=== PATIENT | female | born 1995 | race Hispanic/Latino ===

== ENCOUNTER 2024-01-14 19:00 | Inpatient (IN) | payer OTHER ==
[2024-01-14 20:37] VITALS: BMI 36.3
[2024-01-14] MEDS ORDERED: Lidocaine 1% (PF) 30 ML VIAL SC PRN (20:54)
[2024-01-14] MEDS ORDERED: Diphenoxylate HCl/Atropine Tablet PO PRN (20:54)
[2024-01-14] MEDS ORDERED: Ondansetron PF 4 MG/2 ML Vial IVP PRN (20:54)
[2024-01-14] MEDS ORDERED: Promethazine HCl 25 MG/ML VIAL IM PRN (20:54)
[2024-01-14] MEDS ORDERED: Carboprost 250 MCG/ML AMP IM PRN (20:54)
[2024-01-14] MEDS ORDERED: Misoprostol 200 MCG TAB PR PRN (20:54)
[2024-01-14] MEDS ORDERED: Tranexamic Acid 1,000 MG/10 ML VIAL IVP PRN (20:54)
[2024-01-14] MEDS ORDERED: Methylergonovine 0.2 MG/ML VIAL IM PRN (20:54)
[2024-01-14] MEDS ORDERED: hydrALAZINE 20 MG/ML VIAL SLOW IVP PRN (20:54)
[2024-01-14] MEDS: Lactated Ringer's 1,000 ML IV SCH (21:00)
[2024-01-14] MEDS ORDERED: Oxytocin 30 units/NS 500 ML 500 ML IV SCH ×2 (21:00)
[2024-01-14 21:35] LABS: Hematocrit 34.2 % (34.9-44.5); Hemoglobin 12.1 g/dL (12.0-15.5); Mean Corpuscular HGB CONC 35.4 g/dL (32.0-36.0); Mean Corpuscular Hemoglobin 29.6 pg (27.0-33.0); Mean Corpuscular Volume 83.6 fL (81.6-98.3); Platelet Count 377 10x3/uL (150-450); RBC Distribution Width 13.8 % (11.5-14.5); Red Blood Cell (RBC) Count 4.09 10x6/uL (3.90-5.03); White Blood Cell (WBC) Count 12.9 10x3/uL (3.5-10.5)
[2024-01-14] MEDS: Acetaminophen 500 MG TAB PO PRN (21:41)
[2024-01-14] MEDS: Misoprostol 100 MCG TAB VAG SCH (22:30)
[2024-01-14 23:11] LABS: Syphilis Antibody Nonreactive (Nonreactive); Syphilis Antibody Index 0.09 S/CO (<1.00 Non-Reactive)
[2024-01-14 23:12] LABS: HBsAg Index 0.17 S/CO (0-0.99); Hep B Surf Ag - L&D Non-Reactive S/CO (NonReactive)
[2024-01-15] MEDS: Oxytocin 30 units/NS 500 ML 500 ML IV SCH (12:21)
[2024-01-16] MEDS: fentaNYL/Ropivacaine Epidural 100 ML ONE (00:38)
[2024-01-16] MEDS ORDERED: Ondansetron PF 4 MG/2 ML Vial IVP PRN (00:42)
[2024-01-16] MEDS ORDERED: Moisturizing Cream (Eucerin) 113 GM JAR TOP PRN (00:42)
[2024-01-16] MEDS ORDERED: diphenhydrAMINE 50 MG/ML VIAL IVP PRN (00:42)
[2024-01-16] MEDS ORDERED: ePHEDrine Sulfate 50 MG/10 ML VIAL SLOW IVP PRN (00:42)
[2024-01-16] MEDS ORDERED: Naloxone HCl 0.4 mg/ml Vial IVP PRN ×2 (00:42)
[2024-01-16] MEDS ORDERED: Lactated Ringer's 500 ML IV PRN (00:42)
[2024-01-16] MEDS ORDERED: Acetaminophen 325 MG TAB PO PRN (00:42)
[2024-01-16] MEDS ORDERED: Promethazine HCl 25 MG/ML VIAL IM PRN (00:42)
[2024-01-16] MEDS ORDERED: fentaNYL 2 mcg/Ropivacaine 0.2% Epidural 100 ML CADD EPIDURAL SCH (00:45)
[2024-01-16] MEDS ORDERED: Communication Order-Pharmacy FS SCH (00:45)
[2024-01-16] MEDS ORDERED: Bisacodyl 10 MG SUPP PR PRN (08:22)
[2024-01-16] MEDS ORDERED: hydrALAZINE 20 MG/ML VIAL SLOW IVP PRN (08:22)
[2024-01-16] MEDS ORDERED: Preparation H Ointment 28 GM TUBE PR PRN (08:22)
[2024-01-16] MEDS ORDERED: Misoprostol 200 MCG TAB VAG PRN (08:22)
[2024-01-16] MEDS ORDERED: Methylergonovine 0.2 MG/ML VIAL IM PRN (08:22)
[2024-01-16] MEDS ORDERED: Lanolin Ointment 7 GM TUBE TOP PRN (08:22)
[2024-01-16] MEDS ORDERED: Milk Of Magnesia 30 ML UDCUP PO PRN (08:22)
[2024-01-16] MEDS ORDERED: Oxytocin 30 units/NS 500 ML 500 ML IV SCH (08:22)
[2024-01-16] MEDS: Ferrous Sulfate 325 MG TAB PO SCH ×2 (08:55→16:38)
[2024-01-16] MEDS: Ibuprofen 800 MG TAB PO SCH (08:59)
[2024-01-16] MEDS: Docusate 100 MG CAP PO SCH (08:59)
[2024-01-16] MEDS: Boostrix 0.5 ML (Tdap) VIAL (>/=7 yrs of age) IM ONE (09:00)
[2024-01-16] MEDS ORDERED: Bupivacaine 0.25% HCL 30 ML VIAL ONE (16:07)
[2024-01-16] MEDS: metFORMIN 500 MG TAB PO SCH (20:13)
[2024-01-17] MEDS: Benzocaine-Menthol 82.5 ML CAN TOP PRN (08:08)
[2024-01-17 09:35] VITALS: BP 120/76; TEMP 97.9
== END 2024-01-17 12:15 | disposition home or self-care (01) | DRG 807 ==
LOC: CSHLD 19:52 → CSHPP 01-16 07:45
PROVIDERS: ADMIT Obstetrics & Gynecology; ATTEND Obstetrics & Gynecology
PROC: 10E0XZZ Delivery of Products of Conception, External Approach (ICD-10-PCS; principal; 2024-01-16)
PROC: 0HQ9XZZ Repair Perineum Skin, External Approach (ICD-10-PCS; 2024-01-16)
PROC: 10907ZC Drainage of Amniotic Fluid, Therapeutic from Products of Conception, Via Natural or Artificial Opening (ICD-10-PCS; 2024-01-16)
PROC: 10H07YZ Insertion of Other Device into Products of Conception, Via Natural or Artificial Opening (ICD-10-PCS; 2024-01-16)
PROC: 3E033XZ Introduction of Vasopressor into Peripheral Vein, Percutaneous Approach (ICD-10-PCS; 2024-01-16)
DX: O24.425 Gestational diabetes mellitus in childbirth, controlled by oral hypoglycemic drugs (principal); Z37.0 Single live birth; Z3A.38 38 weeks gestation of pregnancy; O99.214 Obesity complicating childbirth; O76 Abnormality in fetal heart rate and rhythm complicating labor and delivery; O70.0 First degree perineal laceration during delivery
CPT/HCPCS: 36416; 51702; 85027; 86780; 86850; 86900; 86901; 87340; J0665; J2590; J7120